=== PATIENT | male | born 1960 | race Caucasian/White ===

== ENCOUNTER → 2016-09-19 | Outpatient (CLI) | payer BC ==
[~2016-09-19] MED LIST: BROM2.5T13 PO; LISINOPRIL
--- NOTE | 2016-09-19 10:52 | RADRPT ---
PROCEDURE: XR AP pelvis and Hip. CLINICAL INDICATION: Pain. TECHNIQUE: AP and frog lateral views of the left hip were performed. COMPARISON: No. FINDINGS: There is a bone on bone appearance with narrowing of the superior left hip joint. There are degener ative spurs along the margin of the acetabulum. There are clips at the base of the penis. There is fecal material in the rectal ampulla. There is a sclerotic area suspicious for an old bone infarct in the intertrochanteric region of the proximal left femur. The SI joints and right hip are normal . IMPRESSION: 1. Osteoarthritis of the left hip. 2. Status post vasectomy. RPTAT:AAJJ Physician Delia Date Time Electronically viewed and signed by Husam Ríos Physician on 09/19/2016 10:51 LIBRADO/
== END | disposition home or self-care (01) ==
LOC: HKI 09:57
PROVIDERS: ATTEND Orthopaedic Surgery
DX: Z01.818 Encounter for other preprocedural examination (principal); M16.12 Unilateral primary osteoarthritis, left hip; M25.552 Pain in left hip
CPT/HCPCS: 73502; G0463

== ENCOUNTER 2016-09-27 05:40 | Inpatient (IN) | payer BC ==
[2016-09-26 10:04] VITALS: BMI 25.9
[~2016-09-27] VITALS: Ht 182.9 cm; Wt 91.2 kg
[2016-09-27] VITALS (24 sets, daily range): BP systolic 123–154; BP diastolic 68–98; PULSE 50–68; RESP 10–19; Ht 182.9 cm; Wt 91.2 kg
[2016-09-27] MEDS ORDERED: HCTZ LISINOPRIL (06:44)
[2016-09-27] MEDS ORDERED: LISI1TAB8 PO (06:44)
[2016-09-27] MEDS ORDERED: ONDANSETRON 4 MG INJ ONE (06:53)
[2016-09-27] MEDS ORDERED: FENTAnyl 50 MCG/ML VIAL ONE (06:53)
[2016-09-27] MEDS ORDERED: PROPOFOL 100 ML ONE (06:53)
[2016-09-27] MEDS ORDERED: METOCLOPRAMIDE 10 MG INJ ONE (06:53)
[2016-09-27] MEDS ORDERED: CEFAZOLIN 1 GM INJ ONE (06:53)
[2016-09-27] MEDS ORDERED: PROPOFOL 20 ML ONE (06:53)
[2016-09-27] MEDS ORDERED: MIDAZOLAM 1 MG/ML 2 ML INJ ONE (06:53)
[2016-09-27] MEDS ORDERED: DEXAMETHASONE 4 MG/ML 1 ML INJ ONE (06:55)
[2016-09-27] MEDS ORDERED: CEFAZOLIN 2GM/50 ML (PMX) 50 ML X1 BEFORE INCISION IVPB ONE (07:00)
[2016-09-27] MEDS ORDERED: TRANEXAMIC ACID IV ONE (07:00)
[2016-09-27] MEDS: LACTATED RINGER'S 1,000 ML IV SCH ×4 (07:00→17:15)
[2016-09-27] MEDS ORDERED: PREGABALIN 300 MG PO X1 PO ONE (07:00)
[2016-09-27] MEDS ORDERED: SOD CHLORIDE 0.9% IVPB ONE (07:00)
[2016-09-27] MEDS ORDERED: TRANEXAMIC ACID IVPB ONE (07:00)
[2016-09-27] MEDS ORDERED: PAIN COCKTAIL-CEFUROXIME IRR ONE ×7 (07:00)
[2016-09-27] MEDS ORDERED: BUPIVACAINE LIPOSOME/PF 266 MG/20 ML VIAL INFIL ONE (07:00)
[2016-09-27] MEDS ORDERED: SOD CHLORIDE 0.9% IV ONE (07:00)
[2016-09-27] MEDS ORDERED: traMADOL 50 MG TAB X 1 DOSE PO ONE (07:00)
[2016-09-27] MEDS ORDERED: CELECOXIB 400 MG PO X1 DOSE PO ONE (07:00)
[2016-09-27] MEDS ORDERED: oxyCODONE (CR) 10 MG TAB [oxyCONTIN] X1 DOSE PO ONE (07:00)
--- NOTE | 2016-09-27 07:22 | HPN ---
Date/Time of Note Date/Time of Note DATE: 09/27/16 TIME: 07:21 Interval H&P Admission Note Pt. seen H&P reviewed: No system changes No change from H&P on 09/20/[address] Raleigh DIXON,JERRELL Mccabe MD Sep 27, 2016 07:21
[2016-09-27] MEDS ORDERED: VANCOMYCIN 1 GM INJ ONE (07:23)
[2016-09-27] MEDS ORDERED: SODIUM CL BACTERIOSTATIC 30 ML INJ ONE (07:23)
[2016-09-27] MEDS ORDERED: POLYMYXIN B 500000 UNIT INJ ONE (07:23)
[2016-09-27] MEDS ORDERED: METOPROLOL 5 MG INJ ONE (08:16)
[2016-09-27] MEDS ORDERED: BACITRACIN 50000 UNITS INJ IRR ONE (08:24)
[2016-09-27] MEDS ORDERED: ONDANSETRON 4 MG INJ IV PRN ×2 (09:00→10:30)
[2016-09-27] MEDS ORDERED: MEPERIDINE 25 MG INJ IV PRN (09:00)
[2016-09-27] MEDS ORDERED: DIPHENHYDRAMINE 50 MG INJ IV PRN (09:00)
[2016-09-27] MEDS ORDERED: HYDROmorphONE (0.2 MG/ML) 10ML SYG IV PRN ×3 (09:00)
[2016-09-27] MEDS ORDERED: METOCLOPRAMIDE 10 MG INJ IV PRN (09:00)
[2016-09-27] MEDS ORDERED: EXPAREL NOTE (BUPIVICAINE LIPOSOMAL) XX SCH (10:00)
--- NOTE | 2016-09-27 10:09 | RADRPT ---
PROCEDURE: Intraoperative imaging of the left hip with fluoroscopy. CLINICAL INDICATION: Left hip pain. Intraoperative. TECHNIQUE: 17 images of the left hip were obtained in the operating room with an image intensifier . No radiologist was in attendance. 0.6 minutes of fluoroscopy time was used. COMPARISON: 09/19/2016. FINDINGS: Images demonstrate placement of a total left hip arthroplasty. Surgical clips are also noted from pr obable prior vasectomy. IMPRESSION: 1. Satisfactory intraoperative imaging of the left hip. RPTAT: QQ .Lei Burks MD, MD Date Time Electronically viewed and signed by .Lei Burks MD, on 09/27/2016 10:08 .R/
--- NOTE | 2016-09-27 10:15 | RADRPT ---
PROCEDURE: XR Left Hip. CLINICAL INDICATION: Left hip pain. Postop. Incorrect surgical sponge count. TECHNIQUE: Single frontal view. COMPARISON: Intraoperative imaging done earlier the same day. FINDINGS: There is a left hip total arthroplasty. This appears satisfactory with no fracture, dislocation or loosening. There is no lytic lesion. Left lateral skin lacy are noted. There is a Lambert catheter in the bladder. Surgical clips are present from previous vasectomy. There is no other radiopaque foreign body. IMPRESSION: 1. Satisfactory postoperative appearance of the left hip. 2. No abnormal radiopaque foreign body. RPTAT: QQ .Lei Burks MD, MD Date Time Electronically viewed and signed by .Lei Burks MD, MD on 09/27/2016 10:15 .R/
--- NOTE | 2016-09-27 10:20 | OPPN ---
Date/Time of Note Date/Time of Note DATE: 09/27/16 TIME: 10:19 Operative/Procedure Note Dictation # [id number] Pre-Operative Diagnosis Left Hip OA Post-Operative Diagnosis Same Procedure Left Anterior CHARU Surgeon: JERRELL DIXON MD Boarding Mother: AMILCAR NOEL PA-C Anesthesiologist: MILTON GIANG MD Findings Severe OA Blood Usage/Administration None Implants/Grafts Depuy CHARU Estimated blood loss: 250 - 300 ml's Drains Hemovac x 1 Specimens Femoral Head Complications: None Anesthesia type: spinal JERRELL DIXON MD Sep 27, 2016 10:20
--- NOTE | 2016-09-27 10:22 | PN ---
Date/Time of Note Date/Time of Note DATE: 09/27/16 TIME: 10:21 Assessment/Plan Lines/Catheters IV Catheter Type (from Nrsg): Peripheral IV Assessment/Plan Assessment/Plan Stable in PACU, s/p left anterior CHARU -cont abx -pain meds -ASA/SCDs -TXA at 3 hours and 6 hours post op -OOB with PT -check AM labs -monitor drain -d/c ruiz in AM XR of the left hip is pending at this time Subjective 24 Hr Interval Summary Stable in PACU. Moving all extremities. Denies pain. Exam/Review of Systems Vital Signs Vitals Vital Signs Date Time Temp Pulse Resp B/P Pulse Ox O2 Delivery O2 Flow Rate FiO2 09/27/16 06:37 97.4 56 18 136/98 95 Room Air Intake and Output 09/26/16 09/26/16 09/27/16 15:00 23:00 07:00 Intake Total 0 ml Balance 0 ml Exam Free Text/Dictation Dressing dry Incision clean, dry, and intact without redness or drainage 5/5 Quadriceps, Tibialis Anterior, EHL, Gastroc, Soleus, Peroneals Normal sensation Palpable DT/PT, CR <2 sec No distal edema AMILCAR NOEL PA-C Sep 27, 2016 10:22
[2016-09-27] MEDS ORDERED: MAGNESIUM HYDROXIDE 30ML CUP PO PRN (10:30)
[2016-09-27] MEDS ORDERED: NA PHOSPHATE/BIPHOS 133 ML ENEMA PR PRN (10:30)
[2016-09-27] MEDS ORDERED: NACL 0.9% 3 ML SYG IV SCH (10:30)
[2016-09-27] MEDS ORDERED: BISACODYL 10 MG SUPP PR PRN (10:30)
[2016-09-27] MEDS ORDERED: DIPHENHYDRAMINE 25 MG CAP PO PRN (10:30)
[2016-09-27] MEDS ORDERED: ASPIRIN (EC) 325 MG TAB PO ONE (10:30)
[2016-09-27] MEDS ORDERED: oxyCODONE 5 MG TAB PO PRN ×2 (10:30)
[2016-09-27] MEDS ORDERED: HYDROmorphONE 1 MG/ML SYG IV PRN (10:30)
[2016-09-27 10:51] LABS: HEMATOCRIT 38.3 % (42.0-52.0); HEMOGLOBIN 12.8 g/dl (14.0-18.0)
[2016-09-27 11:12] LABS: CALCIUM 8.8 mg/dl (8.4-10.2); CREATININE 0.95 mg/dl (0.61-1.24); POTASSIUM 5.3 mmol/L (3.5-5.1)
[2016-09-27] MEDS: ACETAMINOPHEN 1000MG/100ML IV 100 ML IVPB SCH ×3 (11:17→23:26)
[2016-09-27] MEDS: CEFAZOLIN 2 GM/50 ML (PMX) 50 ML IVPB SCH ×2 (11:18→17:14)
[2016-09-27] MEDS: traMADol 50 MG TAB PO SCH ×3 (11:19→23:25)
--- NOTE | 2016-09-27 11:25 | OPR ---
DATE OF OPERATION: 09/27/2016 PREOPERATIVE DIAGNOSIS: Left hip osteoarthritis. POSTOPERATIVE DIAGNOSIS: Left hip osteoarthritis. OPERATION PERFORMED: Left anterior total hip arthroplasty. SURGEON: Jerrell Dumont MD SYSTEMS SUPPORT OFFICER: GANESH Thomas COMPONENTS USED: DePuy Size 52 mm Gryption [place] cup, 52/36 neutral polyethylene liner, size 8 standard Actis stem, 36 + 5 ceramic head. ANESTHESIA: Spinal plus general endotracheal intubation, plus periarticular injection. ANESTHESIOLOGIST: Dr. Christensen ESTIMATED BLOOD LOSS: 360 mL INTRAVENOUS FLUIDS: Crystalloid 2300 mL SPECIMENS: Femoral head. DRAINS: Hemovac x1. COMPLICATIONS: None. DISPOSITION: The patient tolerated the procedure well and was taken to the recovery room in stable condition. INDICATIONS: The patient is a 56-year-old gentleman who has had progressive worsening pain in the left hip with radiographic evidence of severe osteoarthritis. He has failed nonsurgical means of treatment control of his pain, including activity modifications, pain medications and ambulatory assist devices. Despite these measures, he has had worsening pain. I felt the patient would benefit from a total hip arthroplasty through an anterior approach. The risks, benefits, and alternatives of the procedure were explained in detail to the patient. I explained the risks of the surgery to include, but not be limited to: bleeding and possible need for blood transfusion; infection; pain; stiffness; neurovascular injury with possible numbness, weakness, and/or paralysis anywhere from the hip down to the toes; fracture; instability; dislocation; leg length inequality; wear and/or loosening of the prosthesis and possible need for future revision; blood clots; pulmonary embolism; and anesthetic complications such as heart attack, stroke, GI bleed, pneumonia, and/ or . Ample time was allowed for the patient to ask questions, all of which were addressed and answered. The patient understood the risks involved and wished to proceed. Informed consent was signed prior to the procedure. PROCEDURE: The patient's right hip was initialed with a marking pen in the preoperative area to identify the correct operative site. The patient was brought to the operating room and transferred from the [facility] to the [facility] where a spinal anesthetic was administered. The patient was then anesthetized and intubated. A Lambert catheter was placed. Both feet were placed into well-padded boots which were then placed into the leg holders of the traction booms. A timeout was performed to confirm that the right side was the correct operative site. The patient was given 2 g of intravenous Ancef within one hour prior to the procedure. The operative hip was prepped and draped in the usual sterile fashion. A 10 cm oblique incision was made over the anterior aspect of the hip and carried down through subcutaneous tissue and fat with sharp dissection. The tensor fascia eduar was incised along the length of the wound. The tensor fascia muscle was retracted laterally and the sartorius medially. The anterior circumflex vessels were identified and tied off with 2-0 silk suture and coagulated with the Tissue Link blasting clay miner. The rectus femoris was elevated off the anterior capsule and an anterior capsulectomy performed. A femoral neck osteotomy was made and the head removed from the acetabulum. The acetabulum was denuded of cartilage circumferentially, as was the femoral head. Retractors were placed around the acetabulum. The remnants of the labrum and ligamentum teres were excised. I reamed the acetabulum to the medial wall and then went into an anatomic position and increased the reamer size in 2 mm increments until I got a good bite and was down to bleeding subchondral bone. The [place] cup was opened and impacted into the acetabulum and sat flush circumferentially, getting a good bite. C-arm imaging showed it had about 40 to 45 degrees of abduction and 20 degrees of anteversion. The real liner was opened and impacted into the acetabulum and sat flush circumferentially. Attention was turned towards the femur. The operative leg was carefully lowered to the floor with the leg adducted. The foot was then externally rotated to approximately 110 degrees. A posteromedial release was performed to optimize exposure. The femoral hook was placed underneath the proximal femur and the hydraulic lift was then used to elevate the femur up out of the wound. The cookie cutter osteotome was used to remove the remaining overhanging greater trochanter. The femur was then broached, going up in one size increments until it sat flush with the neck cut and a stable fit was achieved. The trial neck and head were assembled and reduced into the acetabulum. Fluoroscopic imaging showed the components to be in good position and the leg lengths and offsets to be equal. At this point, the trial was dislocated and the trial broach removed. The canal was irrigated and dried. The real stem was opened and impacted into the femur. The trunnion was irrigated and dried, and the real femoral head was impacted onto the trunnion, and reduced into the acetabulum. The soft tissues were infiltrated with a mixture of 150 mg of 0.5% Bupivacaine, 8 mg of Duramorph, 300 mcg of epinephrine, 30 mg of Toradol, 100 mcg of clonidine, 750 mg of cefuroxime and 86 mL of normal saline, followed by an injection of 266 mg of liposomal Bupivacaine. At this point the hip was irrigated with a mixture of betadine/saline and then antibiotic saline with pulsatile lavage. A Hemovac drain was placed in the deep portion of the wound and brought out the anterolateral thigh. There was good hemostasis. The tensor fascia eduar was repaired with a running #1 Vicryl. The deep fat layer was irrigated and closed with 2-0 Stratafix and the subcutaneous layer closed with 3 -0 Vicryl and the skin was closed with lacy and sealed with Dermabond. The drain was secured with 3-0 nylon. The sponge and needle counts were correct at the end of the case. The wound was covered with an occlusive dressing. The patient was awakened, extubated, and taken to the recovery room in stable condition. Dictated By: JERRELL HERNANDEZ/TRAM Conf#: [id number] DID#: [id number] MTDD
--- NOTE | 2016-09-27 11:33 | RADRPT ---
PROCEDURE: XR Pelvis CLINICAL INDICATION: Postop TECHNIQUE: An AP radiograph was submitted. COMPARISON: Left hip study done 09/27/2016 FINDINGS: Osseous structures: The total left hip replacement components again appear well seated and the osseo us elements otherwise appear intact. Joint spaces: Mild degenerative changes seen about the right hip joint. the sacroiliac joints appea r unremarkable without significant erosions or sclerosis. Soft tissues: A surgical drain is seen about the left hip and there is subcutaneous air. A Lambert ca theter is seen to be in place. IMPRESSION: 1. Well seated total left hip replacement with postoperative changes including subcutaneous air wit h a drain in place. 2. Mild degenerative change seen about the right hip. 3. A Lambert catheter is seen to be in place. Physician Sonia Date Time Electronically viewed and signed by Physician Sonia on 09/27/2016 11:33 /
--- NOTE | 2016-09-27 11:35 | RADRPT ---
PROCEDURE: XR Left Hip CLINICAL INDICATION: Postop TECHNIQUE: A single AP view was submitted COMPARISON: The sided earlier on the same date FINDINGS: Osseous structures: The components of the total left hip replacement remain well seated. The osseou s elements otherwise appear intact. Joint spaces: The hip joint is well maintained there is no distension of the joint capsule. Soft tissues: A drain is seen about the left hip and superficial lacy and subcutaneous air are ag ain evident. No other radiopaque foreign body is noted. There is evidence of a previous vasectomy and a Lambert catheter is been placed. IMPRESSION: 1. No change to the appearance of the well seated total left hip replacement with postoperative charmaine nges including subcutaneous air and a drain noted to be in place. 2. Interval placement of a Lambert catheter. There is evidence of a previous vasectomy. Physician Sonia Date Time Electronically viewed and signed by Physician Sonia on 09/27/2016 11:35 /
[2016-09-27] MEDS ORDERED: TRANEXAMIC ACID 910 MG in SOD CHLORIDE 0.9% 100 ML IVPB ONE ×2 (13:30→16:30)
[2016-09-27] MEDS: BROMOCRIPTINE 2.5 MG TAB PO SCH (14:30)
[2016-09-27] MEDS: LISINOPRIL 20 MG TAB PO SCH ×2 (14:30→17:48)
[2016-09-27] MEDS ORDERED: BACITRACIN 50000 UNITS INJ ONE (15:00)
[2016-09-27] MEDS: PANTOPRAZOLE (EC) 40 MG TAB PO SCH (17:13)
[2016-09-27] MEDS: PREGABALIN 25 MG CAP PO SCH (20:34)
[2016-09-27] MEDS: DOCUSATE SODIUM 100 MG CAP PO SCH (20:34)
[2016-09-28 00:25] VITALS: BP 126/76; RESP 20
[2016-09-28 00:57] LABS: ADD UMIC NO; URINE BILIRUBIN (Dip) NEGATIVE (NEGATIVE); URINE BLOOD (Dip) NEGATIVE (NEGATIVE); URINE COLOR LT. YELLOW (YELLOW); URINE GLUCOSE (Dip) NEGATIVE (NEGATIVE); URINE KETONES (Dip) NEGATIVE (NEGATIVE); URINE LEUKOCYTE ESTERASE (Dip) NEGATIVE (NEGATIVE); URINE NITRITE (Dip) NEGATIVE (NEGATIVE); URINE TOTAL PROTEIN (Dip) NEGATIVE (NEGATIVE); URINE UROBILINOGEN (Dip) 0.2 E.U./dL (0.1-1.0)
[2016-09-28] MEDS: LACTATED RINGER'S 1,000 ML IV SCH ×6 (02:42→23:00)
[2016-09-28] MEDS: CEFAZOLIN 2 GM/50 ML (PMX) 50 ML IVPB SCH (02:42)
[2016-09-28] MEDS: traMADol 50 MG TAB PO SCH ×3 (05:19→18:06)
[2016-09-28] MEDS: ACETAMINOPHEN 1000MG/100ML IV 100 ML IVPB SCH (05:19)
[2016-09-28] MEDS: PANTOPRAZOLE (EC) 40 MG TAB PO SCH ×2 (05:19→18:06)
[2016-09-28 05:45] LABS: HEMATOCRIT 33.1 % (42.0-52.0)
[2016-09-28 05:51] LABS: POTASSIUM 3.9 mmol/L (3.5-5.1)
[2016-09-28 05:53] LABS: CREATININE 0.71 mg/dl (0.61-1.24)
[2016-09-28 05:54] LABS: CALCIUM 8.9 mg/dl (8.4-10.2)
--- NOTE | 2016-09-28 07:19 | CONS ---
DATE OF ADMISSION: 09/27/2016 DATE OF CONSULTATION: 09/27/2016 Thank you very much for allowing me to evaluate this 56-year-old male who just underwent left total hip arthroplasty. HISTORICAL EVENTS: As you well know, this patient has had progressive disabling pain involving his left hip, and for this elected to proceed with surgery. Postoperatively, on the orthopedic floor he is comfortable without cough, wheezing, shortness of breath, nausea, vomiting, abdominal or chest p ain. PAST MEDICAL HISTORY: 1. Essential hypertension. 2. Sleep apnea. 3. Repair of a right inguinal hernia. 4. History of a prolactinoma. MEDICATIONS PRIOR TO ADMISSION: 1. Lisinopril/hydrochlorothiazide ____per day. 2. ____ 2.5 per day. 3. Astepro nasal spray every day. SOCIAL HISTORY: He is in sales. He does not use alcohol, does not smoke. PHYSICAL EXAMINATION: GENERAL: [place] male in no acute distress. VITAL SIGNS: BP 122/80, pulse 70, respirations are 20, he was afebrile. EYES: Extraocular muscles were full. NOSE, MOUTH, AND THROAT: Normal. NECK: Supple. There was no jugular venous distention, thyroid enlargement or adenopathy. Carotids 2+. LUNGS: Clear. HEART: Rhythm regular. ABDOMEN: Nontender. Liver and spleen were not palpable. No masses or tenderness were noted. EXTREMITIES: No edema. Calves nontender. IMPRESSION: 1. Stable postoperative left hip replacement. 2. History of hypertension. We will continue his NORMAN inhibitor. 3. Will evaluate daily for signs and symptoms of thromboembolic disease. 4. History of a pituitary tumor. We will continue ____ daily. Dictated By: NOAH ENGEL/TRAM Conf#: [id number] DID#: [id number]
[2016-09-28 08:15] VITALS: BP 125/72; RESP 20
[2016-09-28] MEDS: CELECOXIB 200 MG CAP PO SCH (08:27)
[2016-09-28] MEDS: PREGABALIN 25 MG CAP PO SCH ×2 (08:27→21:21)
[2016-09-28] MEDS: LISINOPRIL 20 MG TAB PO SCH (08:28)
[2016-09-28] MEDS: BROMOCRIPTINE 2.5 MG TAB PO SCH (08:28)
[2016-09-28] MEDS: DOCUSATE SODIUM 100 MG CAP PO SCH ×2 (08:28→21:20)
[2016-09-28] MEDS: ASPIRIN (EC) 325 MG TAB PO SCH ×2 (08:28→21:20)
--- NOTE | 2016-09-28 08:30 | CONS ---
Date/Time of Note Date/Time of Note DATE: 09/28/16 TIME: 08:29 Assessment/Plan Assessment/Plan Additional Assessment/Plan 1. Post op left hip pain, doing well 2. BP well controlled 3. Can dc if ok with ortho and PT Consultation Date/Type/Reason Admit Date/Time Sep 27, 2016 at 05:40 Initial Consult Date Detailed Summary Respiratory: No shortness of breath Cardiovascular: No chest pain Gastrointestinal: no complaints Genitourinary: no complaints, other (ruiz was just removed) Musculoskeletal: bone/joint pain (mild left hip pain) Exam/Review of Systems Vital Signs Vitals Vital Signs Date Time Temp Pulse Resp B/P Pulse Ox O2 Delivery O2 Flow Rate FiO2 09/28/16 08:15 97.7 66 20 125/72 92 09/27/16 23:30 Room Air 09/27/16 11:40 2.0 Intake and Output 09/27/16 09/27/16 09/28/16 15:00 23:00 07:00 Intake Total 2628.65 ml 750 ml 2450 ml Output Total 980 ml 2330 ml Balance 1648.65 ml 750 ml 120 ml Exam Neck: No jvd Respiratory: clear to auscultation Cardiovascular: regular rate and rhythm Gastrointestinal: soft Extremities: No edema (and no calf tend) Results Result Diagram: 09/28/16 0415 09/28/16 0415 Results 24 hrs Laboratory Tests Test 09/27/16 10:14 09/27/16 10:39 09/27/16 16:30 09/28/16 04:15 Urine Bilirubin NEGATIVE Urine Clarity CLEAR Urine Color LT. YELLOW Urine Glucose NEGATIVE Urine Hemoglobin NEGATIVE Urine Ketones NEGATIVE Urine Leukocyte Esterase NEGATIVE Urine Nitrite NEGATIVE Urine Specific [place] 1.020 Urine Total Protein NEGATIVE Urine Urobilinogen 0.2 E.U./dL Urine pH 6.0 Anion Gap 14 14 Blood Urea Nitrogen 18 14 Calcium Level 8.8 8.9 Carbon Dioxide Level 28 28 Chloride Level 105 101 Creatinine 0.95 0.71 Glucose Level 103 103 Hematocrit 38.3 L 33.1 L Hemoglobin 12.8 L 11.0 L Potassium Level 5.3 H 4.1 3.9 Sodium Level 142 139 Medications Medications Current Medications Lactated Ringer's (Lr) 1,000 ml @ 100 mls/hr Q10H IV Last administered on 09/27t 17:14; Admin Dose 100 MLS/HR; Start 09/27/16 at 07:00 Miscellaneous Information 1 ea 1 ea NOTE XX ; Start 09/27/16 at 10:00; Stop 10/01 at 09:59 Lactated Ringer's (Lr) 1,000 ml @ 125 mls/hr Q8H IV Last administered on 02:42; Admin Dose 125 MLS/HR; Start 09/27/16 at 10:03 Celecoxib 200 mg 200 mg DAILY PO ; Start 09/28/16 at 09:00 Acetaminophen (Ofirmev 1000mg/ 100ml Iv) 100 ml @ 400 mls/hr Q6 IVPB Last administered on 09/28/16 05:19; Admin Dose 400 MLS/HR; Start 09/27/16 at 12:00; Stop 09/28/16 at 11:59 Tramadol HCl (Ultram) 50 mg Q6 PO Last administered on 09/28/16 05:19; Admin Dose 50 MG; Start 09/27/16 at 12:00; Stop 09/30/16 at 11:59 Oxycodone HCl (Roxicodone) 5 mg Q4H PRN PO PAIN LEVEL 1-3; Start 09/27/16 at 10 :30 Oxycodone HCl (Roxicodone) 10 mg Q4H PRN PO PAIN LEVEL 4-7; Start 09/27/16 at 10:30 Hydromorphone HCl (Dilaudid) 1 mg Q3H PRN IV PAIN LEVEL 8-10; Start 09/27/16 at 10:30 Ondansetron HCl (Zofran Inj) 4 mg Q6H PRN IV NAUSEA AND/OR VOMITING; Start at 10:30 Bisacodyl (Dulcolax Supp) 10 mg Q12H PRN [place] CONSTIPATION; Start 09/27/16 at 10: 30 Magnesium Hydroxide (Milk Of Mag) 30 ml BID PRN PO CONSTIPATION; Start at 10:30 Sodium Biphosphate/ Sodium Phosphate (Fleet Enema) 133 ml DAILY PRN [place] CONSTIPATION; Start 09/27/16 at 10:30 Docusate Sodium (Colace) 100 mg BID PO Last administered on 09/27/16 20:34; Admin Dose 100 MG; Start 09/27/16 at 21:00 Diphenhydramine HCl (Benadryl) 25 mg Q6H PRN PO PRURITUS; Start 09/27/16 at 10: 30 Aspirin (Ecotrin) 325 mg BID PO ; Start 09/28/16 at 09:00 Pregabalin (Lyrica) 50 mg BID PO Last administered on 09/27/16 20:34; Admin Dose 50 MG; Start 09/27/16 at 21:00 Pantoprazole (Protonix Tab) 40 mg BID@,18 PO Last administered on 09/28/16 05 :19; Admin Dose 40 MG; Start 09/27/16 at 18:00 Lisinopril (Zestril) 20 mg DAILY PO Last administered on 09/27/16 17:48; Admin Dose 20 MG; Start 09/27/16 at 14:30 Bromocriptine Mesylate (Parlodel) 2.5 mg DAILY PO ; Start 09/27/16 at 14:30 NOAH KENNEDY MD Sep 28, 2016 08:30
--- NOTE | 2016-09-28 08:52 | PN ---
Date/Time of Note Date/Time of Note DATE: 09/28/16 TIME: 08:50 Assessment/Plan Lines/Catheters IV Catheter Type (from Nrsg): Peripheral IV Lambert in Place (from Nrsg): Yes Assessment/Plan Assessment/Plan Stable POD #1, s/p left anterior CHARU -d/c abx -pain meds as needed -ASA/SCDs -OOB with PT -drain removed -check AM labs -d/c planning. Possible d/c home tomorrow Subjective 24 Hr Interval Summary Doing well. No acute overnight events. Denies pain. H&H stable. VSS, afebrile. Exam/Review of Systems Vital Signs Vitals Vital Signs Date Time Temp Pulse Resp B/P Pulse Ox O2 Delivery O2 Flow Rate FiO2 09/28/16 08:15 97.7 66 20 125/72 92 09/27/16 23:30 Room Air 09/27/16 11:40 2.0 Intake and Output 09/27/16 09/27/16 09/28/16 15:00 23:00 07:00 Intake Total 2628.65 ml 750 ml 2450 ml Output Total 980 ml 2330 ml Balance 1648.65 ml 750 ml 120 ml Exam Free Text/Dictation Hemovac: 110cc Dressing dry Incision clean, dry, and intact without redness or drainage 5/5 Quadriceps, Tibialis Anterior, EHL, Gastroc, Soleus, Peroneals Normal sensation Palpable DT/PT, CR <2 sec No distal edema Results Result Diagram: 09/28/16 0415 09/28/16 0415 AMILCAR NOEL PA-C Sep 28, 2016 08:52
[2016-09-28] MEDS ORDERED: BROMOCRIPTINE 2.5 MG TAB PO SCH (09:00)
--- NOTE | 2016-09-28 11:01 | PN ---
Date/Time of Note Date/Time of Note DATE: 09/28/16 TIME: 11:00 Assessment/Plan VTE Prophylaxis VTE Prophylaxis Intervention: SCD's Lines/Catheters IV Catheter Type (from Nrs): Peripheral IV Urinary Cath still in place: Yes Subjective 24 Hr Interval Summary Free Text/Dictation Anesthesia note: A 56 nyear male s/p left hip arthroplasty pod #1 comfortable. no n/v, headache , itching, back is clean. v/s stable Exam/Review of Systems Vital Signs Vitals Vital Signs Date Time Temp Pulse Resp B/P Pulse Ox O2 Delivery O2 Flow Rate FiO2 09/28/16 08:15 97.7 66 20 125/72 92 09/27/16 23:30 Room Air 09/27/16 11:40 2.0 Intake and Output 09/27/16 09/27/16 09/28/16 15:00 23:00 07:00 Intake Total 2628.65 ml 750 ml 2450 ml Output Total 980 ml 2330 ml Balance 1648.65 ml 750 ml 120 ml Results Result Diagram: 09/28/16 0415 09/28/16 0415 Results 24 hrs Laboratory Tests Test 09/27/16 16:30 09/28/16 04:15 Potassium Level 4.1 3.9 Anion Gap 14 Blood Urea Nitrogen 14 Calcium Level 8.9 Carbon Dioxide Level 28 Chloride Level 101 Creatinine 0.71 Glucose Level 103 Hematocrit 33.1 L Hemoglobin 11.0 L Sodium Level 139 Medications Medications Current Medications Lactated Ringer's (Lr) 1,000 ml @ 100 mls/hr Q10H IV Last administered on 09/27 17:14; Admin Dose 100 MLS/HR; Start 09/27/16 at 07:00 Miscellaneous Information 1 ea 1 ea NOTE XX ; Start 09/27/16 at 10:00; Stop 10/01 at 09:59 Lactated Ringer's (Lr) 1,000 ml @ 125 mls/hr Q8H IV Last administered on 02:42; Admin Dose 125 MLS/HR; Start 09/27/16 at 10:03 Celecoxib 200 mg 200 mg DAILY PO Last administered on 09/28/16 08:27; Admin Dose 200 MG; Start 09/28/16 at 09:00 Acetaminophen (Ofirmev 1000mg/ 100ml Iv) 100 ml @ 400 mls/hr Q6 IVPB Last administered on 09/28/16 05:19; Admin Dose 400 MLS/HR; Start 09/27/16 at 12:00; Stop 09/28/16 at 11:59 Tramadol HCl (Ultram) 50 mg Q6 PO Last administered on 09/28/16 05:19; Admin Dose 50 MG; Start 09/27/16 at 12:00; Stop 09/30/16 at 11:59 Oxycodone HCl (Roxicodone) 5 mg Q4H PRN PO PAIN LEVEL 1-3; Start 09/27/16 at 10 :30 Oxycodone HCl (Roxicodone) 10 mg Q4H PRN PO PAIN LEVEL 4-7; Start 09/27/16 at 10:30 Hydromorphone HCl (Dilaudid) 1 mg Q3H PRN IV PAIN LEVEL 8-10; Start 09/27/16 at 10:30 Ondansetron HCl (Zofran Inj) 4 mg Q6H PRN IV NAUSEA AND/OR VOMITING; Start at 10:30 Bisacodyl (Dulcolax Supp) 10 mg Q12H PRN [place] CONSTIPATION; Start 09/27/16 at 10: 30 Magnesium Hydroxide (Milk Of Mag) 30 ml BID PRN PO CONSTIPATION; Start at 10:30 Sodium Biphosphate/ Sodium Phosphate (Fleet Enema) 133 ml DAILY PRN [place] CONSTIPATION; Start 09/27/16 at 10:30 Docusate Sodium (Colace) 100 mg BID PO Last administered on 09/28/16 08:28; Admin Dose 100 MG; Start 09/27/16 at 21:00 Diphenhydramine HCl (Benadryl) 25 mg Q6H PRN PO PRURITUS; Start 09/27/16 at 10: 30 Aspirin (Ecotrin) 325 mg BID PO Last administered on 09/28/16 08:28; Admin Dose 325 MG; Start 09/28/16 at 09:00 Pregabalin (Lyrica) 50 mg BID PO Last administered on 09/28/16 08:27; Admin Dose 50 MG; Start 09/27/16 at 21:00 Pantoprazole (Protonix Tab) 40 mg BID@06,18 PO Last administered on 09/28/16 05 :19; Admin Dose 40 MG; Start 09/27/16 at 18:00 Lisinopril (Zestril) 20 mg DAILY PO Last administered on 09/28/16 08:28; Admin Dose 20 MG; Start 09/27/16 at 14:30 Bromocriptine Mesylate (Parlodel) 2.5 mg DAILY PO Last administered on 08:28; Admin Dose 2.5 MG; Start 09/27/16 at 14:30 MILTON GIANG MD Sep 28, 2016 11:01
[2016-09-28 19:19] VITALS: BP 113/70; RESP 20
[2016-09-28 20:00] VITALS: BP 122/70; PULSE 62; RESP 20
[2016-09-28 23:46] VITALS: BP 115/59; RESP 18
[2016-09-29] MEDS: traMADol 50 MG TAB PO SCH ×3 (00:16→12:35)
[2016-09-29] MEDS: LACTATED RINGER'S 1,000 ML IV SCH ×3 (02:03→10:03)
[2016-09-29 05:15] LABS: HEMATOCRIT 31.2 % (42.0-52.0); HEMOGLOBIN 10.4 g/dl (14.0-18.0)
[2016-09-29 05:34] LABS: POTASSIUM 3.9 mmol/L (3.5-5.1)
[2016-09-29 05:37] LABS: CREATININE 0.86 mg/dl (0.61-1.24)
[2016-09-29 05:38] LABS: CALCIUM 8.6 mg/dl (8.4-10.2)
[2016-09-29] MEDS: PANTOPRAZOLE (EC) 40 MG TAB PO SCH (06:12)
[2016-09-29 08:34] VITALS: BP 121/75; RESP 20
[2016-09-29] MEDS: LISINOPRIL 20 MG TAB PO SCH (08:44)
[2016-09-29] MEDS: ASPIRIN (EC) 325 MG TAB PO SCH (08:44)
[2016-09-29] MEDS: BROMOCRIPTINE 2.5 MG TAB PO SCH (08:44)
[2016-09-29] MEDS: PREGABALIN 25 MG CAP PO SCH (08:44)
[2016-09-29] MEDS: CELECOXIB 200 MG CAP PO SCH (08:44)
[2016-09-29] MEDS: DOCUSATE SODIUM 100 MG CAP PO SCH (08:44)
--- NOTE | 2016-09-29 10:19 | PDOCDIS ---
Discharge Instructions DIAGNOSIS Discharge Diagnosis: s/p left anterior total hip arthroplasty CONDITION Patient Condition: Good HOME CARE INSTRUCTIONS: Diet Instructions: Regular ACTIVITY: Activity Restrictions: Slowly Increase Activity Rest between Activity Avoid heavy lifting Avoid Heavy Housework Bathing Restrictions: Tub Bath FOLLOW UP/APPOINTMENTS Appointments follow up in the office on 10/07/16 OTHER ORDERS: Other Orders: S/P Anterior CHARU Physical Therapy: Three times per week at home x 2 weeks Daily in Rehab/SNF (if applicable) WB STATUS: WBAT Strengthening exercises for both upper and un-operated lower extremities. 1. Gait training with front wheeled walker 2. Wide base gait, no pivot turns. 3. Abductor strengthening. 4. Quadriceps and hamstring strengthening. 5. May switch to cane in contra lateral hand 6 weeks after surgery. 6. Physical Therapy can open case if nursing is not available. 7. Ice Packs while at rest to surgical wound for 20 minutes, 3 times/day. 8. Patient requires mobile SCDs to reduce risk of developing DVT following CHARU. Patient will use the mobile SCDs for 30 days postoperatively. Hip Precautions: No posterior hip precautions. Bathing assistance by home health aide twice weekly if Medicare patient. Occupational Therapy: Evaluation for assistive devices and ADL training. Wound Care: Keep incision dry & covered with Tegaderm until first visit with Dr. Dumont Anticoagulation Orders: Enteric Coated Aspirin 325 mg po bid x 6 weeks from date of surgery Follow-up:Call for an appointment with Dr. Dumont in 1 week after discharged from hospital at DME Orders: ISAIAS, 3-in-1 Commode, Mobile SCDs AMILCAR NOEL PA-C Sep 29, 2016 10:19
[2016-09-29] MEDS ORDERED: HYDR-906 PO (10:21)
[2016-09-29] MEDS ORDERED: ASPI325T32 PO (10:21)
[2016-09-29] MEDS ORDERED: PANT40TA4 PO (10:21)
[2016-09-29] MEDS ORDERED: TRAM50TA2 PO (10:21)
--- NOTE | 2016-09-29 10:49 | PN ---
Date/Time of Note Date/Time of Note DATE: 09/29/16 TIME: 10:48 Assessment/Plan Lines/Catheters IV Catheter Type (from Nrsg): Saline Lock Lambert in Place (from Nrsg): No Assessment/Plan Assessment/Plan Stable POD #2, s/p left anterior CHARU -pain meds as needed -ASA/SCDs -OOB with PT -dressing changed -d/c home today -follow up in the office on 10/07/16 Subjective 24 Hr Interval Summary Doing well. No acute overnight events. Denies pain. Walked 300 feet with PT. VSS , afebrile. Would like to go home today. Exam/Review of Systems Vital Signs Vitals Vital Signs Date Time Temp Pulse Resp B/P Pulse Ox O2 Delivery O2 Flow Rate FiO2 09/29/16 08:34 97.7 62 20 121/75 96 09/28/16 20:00 Room Air 09/27/16 11:40 2.0 Intake and Output 09/28/16 09/28/16 09/29/16 15:00 23:00 07:00 Intake Total 1100 ml 1400 ml Output Total 1200 ml 1300 ml Balance -100 ml 100 ml Exam Free Text/Dictation Dressing dry Incision clean, dry, and intact without redness or drainage 5/5 Quadriceps, Tibialis Anterior, EHL, Gastroc, Soleus, Peroneals Normal sensation Palpable DT/PT, CR <2 sec No distal edema Results Result Diagram: 09/29/1643209/29/16432 AMILCAR NOEL PA-C Sep 29, 2016 10:49
--- NOTE | 2016-09-29 12:37 | CONS ---
Date/Time of Note Date/Time of Note DATE: 09/29/16 TIME: 12:22 Assessment/Plan Assessment/Plan Chief Complaint/Hosp Course 1. He is 2 days post op a R CHARU and is doing well . He can be discharged home today . Problems: Consultation Date/Type/Reason Admit Date/Time Sep 27, 2016 at 05:40 Initial Consult Date 24 HR Interval Summary Free Text/Dictation He is doing well . Constitutional: improved, no complaints Exam/Review of Systems Vital Signs Vitals Vital Signs Date Time Temp Pulse Resp B/P Pulse Ox O2 Delivery O2 Flow Rate FiO2 09/29/16 08:34 97.7 62 20 121/75 96 09/28/16 20:00 Room Air 09/27/16 11:40 2.0 Intake and Output 09/28/16 09/28/16 09/29/16 15:00 23:00 07:00 Intake Total 1100 ml 1400 ml Output Total 1200 ml 1300 ml Balance -100 ml 100 ml Exam Constitutional: alert, oriented, well developed Psych: nl mood/affect, no complaints Respiratory: clear to auscultation, normal air movement Cardiovascular: nl pulses, regular rate and rhythm Musculoskeletal: nl extremities to inspection Results Result Diagram: 09/29/16 0433 09/29/16 0433 Results 24 hrs Laboratory Tests Test 09/29/16 04:33 Anion Gap 11 Blood Urea Nitrogen 18 Calcium Level 8.6 Carbon Dioxide Level 32 H Chloride Level 103 Creatinine 0.86 Glucose Level 88 Hematocrit 31.2 L Hemoglobin 10.4 L Potassium Level 3.9 Sodium Level 142 Medications Medications Current Medications Lactated Ringer's (Lr) 1,000 ml @ 100 mls/hr Q10H IV Last administered on 09/27 17:14; Admin Dose 100 MLS/HR; Start 09/27/16 at 07:00 Miscellaneous Information 1 ea 1 ea NOTE XX ; Start 09/27/16 at 10:00; Stop 10/01 at 09:59 Lactated Ringer's (Lr) 1,000 ml @ 125 mls/hr Q8H IV Last administered on 02:42; Admin Dose 125 MLS/HR; Start 09/27/16 at 10:03 Celecoxib (Celebrex) 200 mg DAILY PO Last administered on 09/29/16 08:44; Admin Dose 200 MG; Start 09/28/16 at 09:00 Tramadol HCl (Ultram) 50 mg Q6 PO Last administered on 09/29/16 06:12; Admin Dose 50 MG; Start 09/27/16 at 12:00; Stop 09/30/16 at 11:59 Oxycodone HCl (Roxicodone) 5 mg Q4H PRN PO PAIN LEVEL 1-3; Start 09/27/16 at 10 :30 Oxycodone HCl (Roxicodone) 10 mg Q4H PRN PO PAIN LEVEL 4-7; Start 09/27/16 at 10:30 Hydromorphone HCl (Dilaudid) 1 mg Q3H PRN IV PAIN LEVEL 8-10; Start 09/27/16 at 10:30 Ondansetron HCl (Zofran Inj) 4 mg Q6H PRN IV NAUSEA AND/OR VOMITING; Start at 10:30 Bisacodyl (Dulcolax Supp) 10 mg Q12H PRN AL CONSTIPATION; Start 09/27/16 at 10: 30 Magnesium Hydroxide (Milk Of Mag) 30 ml BID PRN PO CONSTIPATION; Start at 10:30 Sodium Biphosphate/ Sodium Phosphate (Fleet Enema) 133 ml DAILY PRN AL CONSTIPATION; Start 09/27/16 at 10:30 Docusate Sodium (Colace) 100 mg BID PO Last administered on 09/29/16 08:44; Admin Dose 100 MG; Start 09/27/16 at 21:00 Diphenhydramine HCl (Benadryl) 25 mg Q6H PRN PO PRURITUS; Start 09/27/16 at 10: 30 Aspirin (Ecotrin) 325 mg BID PO Last administered on 09/29/16 08:44; Admin Dose 325 MG; Start 09/28/16 at 09:00 Pregabalin (Lyrica) 50 mg BID PO Last administered on 09/29/16 08:44; Admin Dose 50 MG; Start 09/27/16 at 21:00 Pantoprazole (Protonix Tab) 40 mg BID@,18 PO Last administered on 09/29/16 06 :12; Admin Dose 40 MG; Start 09/27/16 at 18:00 Lisinopril (Zestril) 20 mg DAILY PO Last administered on 09/29/16 08:44; Admin Dose 20 MG; Start 09/27/16 at 14:30 Bromocriptine Mesylate (Parlodel) 2.5 mg DAILY PO Last administered on 08:44; Admin Dose 2.5 MG; Start 09/27/16 at 14:30 KELLIE URIAS MD Sep 29, 2016 12:37
--- NOTE | 2016-09-30 10:28 | DS ---
DATE OF ADMISSION: 09/27/2016 DATE OF DISCHARGE: 09/29/2016 CONDITION ON DISCHARGE: Stable. ADMITTING DIAGNOSIS: Left hip osteoarthritis. DISCHARGE DIAGNOSIS: Status post left anterior total hip arthroplasty. PROCEDURE PERFORMED: Left anterior total hip arthroplasty. HOSPITAL COURSE: This is a 56-year-old male who was seen in the clinic initially complaining of lef t hip pain. X-rays were obtained and demonstrated advanced osteoarthritis of the left hip and it wa s deemed he would benefit from a left anterior total hip arthroplasty. On 09/27/2016, the patient w as admitted and taken to the operating room where he underwent a left anterior total hip arthroplast y. There were no intraoperative complications. The patient tolerated the procedure well. He was t aken to the recovery room in stable condition. Pain was well controlled with oral pain medication. He was started on aspirin and SCDs for DVT prophylaxis. He remained hemodynamically stable and olga rovascularly intact throughout his hospital stay. He began physical therapy on postoperative day 0 and was deemed stable for discharge on postoperative day 2. Prior to going home, the incision was i nspected and noted to be clean, dry and intact. Dressing changes were done prior to the patient frances ng discharged home. LABORATORY ANALYSIS: Hemoglobin 10.4, hematocrit 31.2. Chemistry panel was within normal limits up on discharge. DISCHARGE MEDICATIONS: 1. [place] 5/325 2. Tramadol 50 mg. 3. Aspirin 325 mg. 4. Protonix 40 mg. In addition, the patient is to resume all his normal home medications. DISCHARGE INSTRUCTIONS: The patient will be discharged home in stable condition. He should resume a normal diet. ACTIVITY: Includes weightbearing as tolerated on the left lower extremity. He began physical thera py at home and transition to outpatient physical therapy as needed. He will be discharged with the medications noted above and is to resume all of his normal home medications. The patient is to call the office or return to the emergency room for any concerns including increased redness, swelling, drainage or fever or any concerns regarding the operation or site of incision. FOLLOWUP: The patient is to follow up in the office with Dr. Dumont on 10/07/2016. Dictated By: AMILCAR LOPEZ/TRAM Conf#: [id number] DID#: [id number]
== END 2016-09-29 13:00 | disposition home health service (06) | DRG 470 ==
LOC: REC 05:40 → MS1 12:45
PROVIDERS: ADMIT Orthopaedic Surgery; ATTEND Orthopaedic Surgery
PROC: 0SRB04A Replacement of Left Hip Joint with Ceramic on Polyethylene Synthetic Substitute, Uncemented, Open Approach (ICD-10-PCS; principal; 2016-09-27 07:00)
DX: M16.12 Unilateral primary osteoarthritis, left hip (principal); I10 Essential (primary) hypertension; G47.33 Obstructive sleep apnea (adult) (pediatric); D35.2 Benign neoplasm of pituitary gland; Z98.890 Other specified postprocedural states; Z79.82 Long term (current) use of aspirin
CPT/HCPCS: 72170; 73500; 73530; 80048; 81003; 84132; 85014; 85018; 86850; 86900; 86901; 86920; 87081; 87086; 97110; 97116; 97162; 97166; 97530; C1776; C9290; J0131; J0171; J0690; J0697; J0735; J1100; J1885; J2250; J2274; J2405; J2765; J3010; J3370; J7120

== ENCOUNTER → 2016-10-07 | Outpatient (CLI) | payer BC ==
[~2016-10-07] MED LIST changes: +ASPI325T32 PO; +HYDR-906 PO; +LISI1TAB8 PO; -LISINOPRIL; +PANT40TA4 PO; +TRAM50TA2 PO
--- NOTE | 2016-10-07 10:54 | RADRPT ---
PROCEDURE: XR pelvis/left hip. CLINICAL INDICATION: Hip pain TECHNIQUE: AP pelvis/lateral left hip view performed. COMPARISON: 09/27/2016 FINDINGS: There is a left total hip replacement. There is no evidence of loosening of the prosthesis. There is moderate right hip osteoarthrosis. This is associated with joint space narrowing, subchondr al sclerosis and osteophytosis. There is normal osseous mineralization. No fractures or osseous le sions are identified. The soft tissues are unremarkable. IMPRESSION: Left total hip replacement. Moderate right hip osteoarthrosis. RPTAT: HGDB .Waldemar Estes MD, Date Time Electronically viewed and signed by .Waldemar Estes MD, on 10/07/2016 10:53 .B/
--- NOTE | 2016-10-07 11:26 | HKNOTE ---
DATE OF SERVICE: 10/07/2016 INTERVAL HISTORY: The patient presents today for his first postoperative evaluation. He is 10 days status post left anterior total hip arthroplasty. He is doing excellent overall. He has had minim al pain and has not taken any narcotics. He has been taking aspirin twice daily for DVT prophylaxis . He has also been doing physical therapy with home health. He is ambulating with a front-wheel wa lker but feels he can advance to a cane or no assist device. He denies any fevers or chills, denies any pus or drainage from the incision, and presents today for his first postoperative evaluation. PHYSICAL EXAMINATION: Today, is alert and oriented x4, in no acute distress. He is ambulating with a front-wheeled walker. Examination of the incision demonstrates it to be clean, dry, and intact. There is no pus or drainage noted. Jason are in place. There is mild soft tissue swelling. No erythema or warmth. Compartments are soft. Homans sign is negative. He is neurovascularly intact distally. IMAGING: X-rays of the left hip were obtained today and reviewed by me. They reveal good anatomic alignment with no fracture or dislocation identified. ASSESSMENT: 10 days status post left anterior total hip arthroplasty doing very well overall. PLAN: The jason were removed today, and Steri-Strips were applied. DISCUSSION: He can discontinue using a front-wheeled walker and can advance to a cane. He should u se it in the opposite hand when he is ambulating. He will work with physical therapy on gait traini ng as well as improving his range of motion. He is to continue aspirin twice a day for 6 weeks for DVT prophylaxis. We will see him back in 4 weeks for repeat evaluation. Dictated By: AMILCAR ANDERSEN for JERRELL LOPEZ/TRAM Conf#: [id number] DID#: [id number]
== END | disposition home or self-care (01) ==
LOC: HKI 09:52
PROVIDERS: ATTEND Orthopaedic Surgery
DX: Z47.1 Aftercare following joint replacement surgery (principal); Z96.642 Presence of left artificial hip joint
CPT/HCPCS: 73502

== ENCOUNTER → 2016-11-04 | Outpatient (CLI) | payer BC | END | disposition home or self-care (01) | LOC: HKI 09:39 | PROVIDERS: ATTEND Orthopaedic Surgery | DX: Z47.1 Aftercare following joint replacement surgery (principal); M16.12 Unilateral primary osteoarthritis, left hip; Z96.642 Presence of left artificial hip joint; I10 Essential (primary) hypertension ==

== ENCOUNTER → 2017-01-06 | Outpatient (CLI) | payer BC ==
--- NOTE | 2017-01-06 12:20 | RADRPT ---
PROCEDURE: XR pelvis/left hip. CLINICAL INDICATION: Hip pain TECHNIQUE: AP pelvis/AP and lateral left hip view performed. COMPARISON: 10/07/2016 FINDINGS: There is a left total hip replacement. There is no evidence of loosening of the prosthesis. No hardw are failure identified. There are surgical clips in the right and left scrotal sac. There is moderate right hip osteoarthrosis. This is associated with joint space narrowing, subchondr al sclerosis, subchondral cyst formation and osteophytosis. There is normal osseous mineralization. No fractures or osseous lesions are identified. The soft tissues are unremarkable. IMPRESSION: Left total hip replacement. Moderate right hip osteoarthrosis. RPTAT: HGDB .Waldemar Estes MD, MD Date Time Electronically viewed and signed by .Waldemar Estes MD, on 01/06/2017 12:20 .B/
== END | disposition home or self-care (01) ==
LOC: HKI 09:48
PROVIDERS: ATTEND Orthopaedic Surgery
DX: Z47.89 Encounter for other orthopedic aftercare (principal); Z96.642 Presence of left artificial hip joint
CPT/HCPCS: 73502; G0463